=== PATIENT | female | born 1980 | race Caucasian/White ===

== ENCOUNTER 2020-01-05 08:12 | Day surgery (SDC) | payer BC ==
[~2020-01-05 08:12] MED LIST: Lactated Ringers 1,000 ML IV SCH; Lidocaine 1%/Sod Bicarbonate in NS 8.4% 1 ML Syringe IDERM PRN; Sodium Chloride 0.9% 10 ML Syringe FLUSH PRN
[2020-01-05] MEDS ORDERED: Midazolam 1 MG/ML 2 ML SDV ONE (09:19)
[2020-01-05] MEDS ORDERED: Lactated Ringers 1,000 ML ONE (09:19)
[2020-01-05] MEDS ORDERED: Ondansetron 4 MG/2 ML SDV ONE (09:19)
[2020-01-05] MEDS ORDERED: Propofol 200 MG/20 ML SDV ONE (09:19)
[2020-01-05] MEDS ORDERED: Rocuronium 50 MG/5 ML Vial ONE (09:19)
[2020-01-05] MEDS ORDERED: fentaNYL 250 MCG/5 ML SDV ONE (09:19)
[2020-01-05] MEDS ORDERED: Lidocaine 1% 4 ML ONE (09:19)
[2020-01-05] MEDS ORDERED: Ketorolac 30 MG/ML SDV ONE (09:21)
[2020-01-05] MEDS ORDERED: Dexamethasone 4 MG/ML 5 ML MDV ONE (09:21)
[2020-01-05] MEDS: Bupivacaine 0.5% 30 ML SDV ONE ×2 (10:08→10:27)
[2020-01-05] MEDS ORDERED: Ondansetron 4 MG/2 ML SDV IVPUSH PRN (10:22)
[2020-01-05] MEDS ORDERED: HYDROmorphone 0.5 MG/0.5 ML Syringe IVPUSH PRN (10:22)
--- NOTE | 2020-01-05 10:26 | PCM.PREANE ---
Preanesthetic Assessment - Anesthesia/Transfusion/Family Hx Anesthesia History: Prior Anesthesia Without Reaction Family History of Anesthesia Reaction: No - Review of Systems General: No Symptoms Pulmonary: No Symptoms Cardiovascular: No Symptoms (Hypertension controlled with medication. ) Gastrointestinal: Abdominal Pain Neurological: Headache, Pre-Existing Deficit (Back pain goes into both legs sharp, left leg more than the right leg. Intermittent depending on activity level. ) Other: Reports: None - Physical Assessment NPO Status Date: 01/04/20 NPO Status Time: 22:00 Vital Signs: Last Vital Signs Temp 37.2 C 01/05/20 08:25 Pulse 97 01/05/20 08:25 Resp 16 01/05/20 08:25 BP 119/88 01/05/20 08:25 Pulse Ox 100 01/05/20 08:25 Height: 1.65 m Weight: 81.193 kg ASA Class: 2 Mental Status: Alert & Oriented x3 Airway Class: Mallampati = 2 Dentition: Reports: [place](s) (Front Upper with chip at corner. ) Thyro-Mental Finger Breadths: 2 Mouth Opening Finger Breadths: 3 ROM/Head Extension: Full Lungs: Clear to Auscultation, Normal Respiratory Effort Cardiovascular: Regular Rate, Regular Rhythm - Lab Values: Laboratory Last Values Urine Color Yellow (Yellow) 01/05/20 08:23 Urine Appearance Slt cloudy (Clear) H 01/05/20 08:23 Urine pH 6.0 (5.0-8.0) 01/05/20 08:23 Ur Specific [place] > or = 1.030 (1.005-1.030) 01/05/20 08:23 Urine Protein Negative (Negative) 01/05/20 08:23 Urine Glucose (UA) Negative (Negative) 01/05/20 08:23 Urine Ketones Negative (Negative) 01/05/20 08:23 Urine Occult Blood Negative (Negative) 01/05/20 08:23 Urine Nitrite Negative (Negative) 01/05/20 08:23 Urine Bilirubin Negative (Negative) 01/05/20 08:23 Urine Urobilinogen 0.2 (0.2-1.0) 01/05/20 08:23 Ur Leukocyte Esterase Negative (Negative) 01/05/20 08:23 Urine RBC 0-5 /hpf (0-5) 01/05/20 08:23 Urine WBC 0-5 /hpf (0-5) 01/05/20 08:23 Ur Epithelial Cells 10-20 /hpf (0-5) H 01/05/20 08:23 Urine Bacteria Not seen /hpf (FEW) 01/05/20 08:23 Urine Mucus Not seen /hpf (FEW) 01/05/20 08:23 Urine HCG, Qual Negative (NEGATIVE) 01/05/20 08:23 - Allergies Allergies/Adverse Reactions: Allergies Allergy/AdvReac Type Severity Reaction Status Date / Time cat dander Allergy Cannot Verified 01/05/20 09:42 Remember - Acknowledgements Anesthesia Type Planned: General Anesthesia Pt an Appropriate Candidate for the Planned Anesthesia: Yes Alternatives and Risks of Anesthesia Discussed w Pt/Guardian: Yes Pt/Guardian Understands and Agrees with Anesthesia Plan: Yes PreAnesthesia Questionnaire HEENT History: Reports: Allergic Rhinitis Cardiovascular History: Reports: Hypertension Respiratory History: Reports: None Gastrointestinal History: Reports: Chronic Constipation, GERD Genitourinary History: Reports: Other (See Below) Other Genitourinary History: suprapubic pain, frequency ETCHER MACHINE History: Reports: Other (See Below) Other OB/BYN History: bacterial vaginitis, infertility, menorrhagia, pelvic pain , vaginal itching, hysteroscopy, laparoscopy with endometriosis implants Musculoskeletal History: Reports: Back Pain, Chronic Neurological History: Reports: Headaches, Chronic, Migraines Psychiatric History: Reports: None Endocrine/Metabolic History: Reports: None Hematologic History: Reports: None Immunologic History: Reports: None Oncologic (Cancer) History: Reports: None Dermatologic History: Reports: Other (See Below) Other Dermatologic History: acne - Past Surgical History Head Surgeries/Procedures: Reports: None HEENT Surgical History: Reports: None Cardiovascular Surgical History: Reports: None Respiratory Surgical History: Reports: None Female Surgical History: Reports: None Male Surgical History: Reports: None Endocrine Surgical History: Reports: None Neurological Surgical History: Reports: None Musculoskeletal Surgical History: Reports: None Oncologic Surgical History: Reports: None - SUBSTANCE USE Smoking Status *Q: Never Smoker Recreational Drug Use History: No - HOME MEDS Home Medications: Home Meds Cyclobenzaprine [Flexeril] 10 mg PO TID PRN 01/04/20 [History] Dicyclomine [Bentyl] 10 mg PO QID 01/04/20 [History] Labetalol HCl [Labetalol] 100 mg PO BID 01/04/20 [History] Lactulose [Chronulac] 15 ml PO DAILY 01/04/20 [History] Norethindrone [Aygestin] 5 mg PO DAILY 01/04/20 [History] Omeprazole 20 mg PO BID 01/04/20 [History] Topiramate 150 mg PO DAILY 01/04/20 [History] ondansetron HCL [Ondansetron HCl] 4 mg PO Q6H PRN 01/04/20 [History] - CURRENT (IN HOUSE) MEDS Current Meds: Current Medications Lactated Ringer's (Ringers, Lactated) 1,000 mls @ 125 mls/hr IV ASDIRECTED ROSARIO Stop: 01/05/20 23:00 Last Admin: 01/05/20 08:55 Dose: 125 mls/hr Lidocaine/Sodium Bicarbonate (Buffered Lidocaine 1% In Ns 8.4%) 0.25 ml IDERM ONETIME PRN PRN Reason: Prior to IV Start Stop: 01/05/20 18:00 Last Admin: 01/05/20 08:55 Dose: 0.25 ml Sodium Chloride (Saline Flush) 10 ml FLUSH ASDIRECTED PRN PRN Reason: Keep Vein Open Stop: 01/05/20 18:00 Discontinued Medications Bupivacaine HCl (Marcaine 0.5%) Confirm Administered Dose 30 ml .ROUTE .STK-MED ONE Stop: 01/05/20 09:16 Dexamethasone (Dexamethasone) Confirm Administered Dose 20 mg .ROUTE .STK-MED ONE Stop: 01/05/20 09:22 Fentanyl (Sublimaze) Confirm Administered Dose 250 mcg .ROUTE .STK-MED ONE Stop: 01/05/20 09:20 Lidocaine HCl (Xylocaine-Mpf 1%) Confirm Administered Dose 4 mls @ as directed .ROUTE .STK-MED ONE Stop: 01/05/20 09:20 Lactated Ringer's (Ringers, Lactated) Confirm Administered Dose 1,000 mls @ as directed .ROUTE .STK-MED ONE Stop: 01/05/20 09:20 Ketorolac Tromethamine (Toradol) Confirm Administered Dose 30 mg .ROUTE .STK- MED ONE Stop: 01/05/20 09:22 Midazolam HCl (Versed 1 Mg/Ml) Confirm Administered Dose 2 mg .ROUTE .STK-MED ONE Stop: 01/05/20 09:20 Ondansetron HCl (Zofran) Confirm Administered Dose 4 mg .ROUTE .STK-MED ONE Stop: 01/05/20 09:20 Propofol (Diprivan 20 Ml) Confirm Administered Dose 400 mg .ROUTE .STK-MED ONE Stop: 01/05/20 09:20 Rocuronium Oden (Zemuron) Confirm Administered Dose 50 mg .ROUTE .STK-MED ONE Stop: 01/05/20 09:20
[2020-01-05] MEDS ORDERED: Neostigmine Methylsulfate 1 MG/ML 5 ML Syringe ONE ×2 (10:38→10:39)
[2020-01-05] MEDS: fentaNYL 100 MCG/2 ML SDV IVPUSH PRN ×2 (11:10→11:32)
--- NOTE | 2020-01-05 11:11 | PCM.POSTAN ---
POST ANESTHESIA ASSESSMENT - MENTAL STATUS Mental Status: Alert, Oriented - VITAL SIGNS Vital Signs: Last Vital Signs Temp 37.2 C 01/05/20 08:25 Pulse 97 01/05/20 08:25 Resp 16 01/05/20 08:25 BP 119/88 01/05/20 08:25 Pulse Ox 100 01/05/20 08:25 1104 118/72 83 20 98.6F 97% - RESPIRATORY Respiratory Status: Respiratory Rate WNL, Airway Patent, O2 Saturation Stable, Supplemental Oxygen - CARDIOVASCULAR CV Status: Pulse Rate WNL, Blood Pressure Stable - GASTROINTESTINAL GI Status: No Symptoms - PAIN Pain Score: 0 - POST OP HYDRATION Hydration Status: Adequate & Stable
[2020-01-05] MEDS ORDERED: Haloperidol Lactate 5 MG/ML SDV IVPUSH ONE (11:25)
--- NOTE | 2020-01-05 12:33 | PCM.OPNOTE ---
- General Post-Op/Procedure Note Date of Surgery/Procedure: 01/05/20 Operative Procedure(s): Laparoscopic bilateral salpingectomy with minimal amount of lysis of adhesions Findings: Uterus with multiple fibroids located throughout the entirety of the uterus on the anterior, fundal and posterior [place] of the uterus. Edematous bilateral fallopian tubes. Left ovary with 2 endometriomas present measuring approximately 3 to 4 cm each. Right ovary grossly normal in appearance except for 1 inferior endometrioma measuring approximately 2 cm. Grossly normal- appearing appendix and visualized portions of the intestines. Visualized portion of the gallbladder was normal. Visualized portions of the liver were normal. Pre Op Diagnosis: Pelvic pain and hydrosalpinx noted on ultrasound, history of endometriosis Post-Op Diagnosis: Same Anesthesia Technique: General ET Tube Primary Surgeon: Saran Nguyen Anesthesia Provider: Va Snell Medical Recruiter: Romario Emery Medical Recruiter: Rai Muñiz ([place] student) Reason Medical Recruiter Was Necessary: Patient safety and reduction of morbidity and mortality Role of Medical Recruiter: Use of laparoscopic instruments to complete the procedure. Pathology: Bilateral fallopian tubes in separate containers Fluid Replacement, Intraop: 1,600 Output, Urine Amount: 0 (Voided prior to procedure) EBL in mLs: 15 Complications: None Condition: Good Free Text/Narrative:: Intake & Output 01/04/20 01/05/20 01/05/20 22:59 06:59 14:59 Intake Total 150 Balance 150 Length of procedure: 42 minutes Procedure in detail: The patient was seen in the preoperative holding area and risks, benefits, indications, and alternatives of the procedure were reviewed with the patient and she desired to proceed with a diagnostic laparoscopy, with salpingectomy of affected side, possible unilateral or bilateral and possible lysis of adhesions. Consents were reviewed. The patient was taken back to the OR and given general anesthesia with an endotracheal tube which was placed without difficulty. She was placed in dorsal supine position. She was prepped and draped in normal sterile fashion. Attention was then turned to her umbilicus and it was injected with 0.5% Marcaine and a 5 mm stab incision was made with a scalpel and a Veress needle was then inserted through the incision. The gas was turned on, with an opening pressure of 8 mmHg. Pneumoperitoneum was continued until 15 mmHg pressure. A 5 mm trocar was then inserted under direct visualization through the incision without difficulty. A global view of the abdomen was taken and noted to be overall free of adhesions. Attention was then turned to the right lower quadrant of the abdomen where a previous laparoscopic port scar was noted and this was used for this procedure. The skin was injected with local anesthetic and a skin incision was made using a scalpel. A 5 mm trocar was then inserted under direct visualization with laparoscope. Attention was then turned to the left lower quadrant of the abdomen where a previous laparoscopic port scar was noted and this was used for this procedure. The skin was injected with local anesthetic and a skin incision was made using a scalpel. A 5 mm trocar was then inserted under direct visualization with the laparoscope. A global view of the abdomen was then taken and noted to be overall normal in appearance. The intestines, visualized portions of the liver and gallbladder and upper abdomen were overall normal appearance. The appendix was visualized and noted to be normal in appearance. The uterus was then inspected and felt to be overall normal in appearance except for multiple fibroids on all of the surfaces of the uterus. There were approximately 6 fibroids noted with 2 on the anterior surface of the uterus. One was at the uterine fundus near the right round ligament insertion. And 3 were noted on the posterior side of the uterus with 2 on the right side and 1 on the left. The largest fibroid measured approximately 5 cm and on the anterior surface of the uterus near the midline. The remainder of the fibroids ranged in size from 1 to 3 cm approximately. The fallopian tubes and ovaries were inspected and noted to have multiple endometriomas present in the left ovary and one endometrioma in the right ovary. The fallopian tube on the left side was edematous and scarred down to the ovary. A laparoscopic Enseal vessel sealing device was then used to dissect the fallopian tube away from the ovary and the underlying mesosalpinx to the level of the insertion of the uterus and then was cut across the fallopian tube attachment. This was removed from the abdomen and sent to pathology. Evaluation of the right tube and ovary showed grossly normal- appearing ovary with 1 smaller endometrioma present and an edematous midportion of the fallopian tube. Decision was made to remove this fallopian tube as well due to the suspected hydrosalpinx on the right side as well. The laparoscopic Enseal vessel sealing device was used to dissect the fallopian tube from the underlying mesosalpinx to the level of the insertion of the uterus and then transected using the Enseal device. The fallopian tube was removed from the abdomen and sent for pathology as a separate specimen. Inspection of the posterior cul-de-sac did not show any abnormalities or evidence of endometriosis lesions. The abdomen was then further explored and no felt to be overall normal and the case was completed at this time. The gas was then evacuated from the peritoneum and trocars removed. These were closed using 4-0 Monocryl suture and Dermabond. The case was completed at this time and all instruments were removed. The patient was awoken from general anesthesia and taken to the PACU for recovery in stable condition. She will be discharged to home once she is able to meet all postoperative milestones including tolerating small amount of oral intake and liquids, ambulate without difficulty, her pain controlled with oral medications and able to void without difficulty. She will follow-up in the clinic in 2 weeks or earlier as needed. Sponge, lap, needle, and instrument counts were correct x 2. Review of images IMG 001: Uterine fundus with several fibroids noted with one near the right round ligament insertion on the uterus and the other in the anterior surface of the uterus in the midline. IMG 002: Anterior fundal uterine fibroid in the foreground with a larger mid uterine fibroid noted in the midline as well IMG 003: Grossly normal-appearing appendix IMG 004: Right lobe of the liver grossly normal in appearance with normal visualized portion of the gallbladder IMG 005: Left lobe of the liver grossly normal in appearance IMG 006: Left fallopian tube and ovary with multiple endometriomas visualized. Edematous portion of the fallopian tube noted at the 6 o'clock position in this picture. IMG 007: Left mesosalpinx with hemostasis noted after removal of the fallopian tube IMG 008: Right mesosalpinx with hemostasis noted after removal of the fallopian tube IMG 009: Posterior cul-de-sac with visualized portion of the ovary and an endometrioma present in the inferior portion of the right ovary. Multiple fibroids noted on the posterior surface of the uterus IMG 010: Left ovary with endometrioma present IMG 011: Right ovary with additional view of the endometrioma in the inferior portion
[2020-01-05] MEDS ORDERED: Acetaminophen/oxyCODONE 325-5 MG Tab PO PRN (12:40)
--- NOTE | 2020-01-05 12:55 | PCM48HPAN ---
Post Anesthesia Note - EVALUATION WITHIN 48HRS OF ANESTHETIC Vital Signs in Normal Range: Yes Patient Participated in Evaluation: Yes Respiratory Function Stable: Yes Airway Patent: Yes Cardiovascular Function Stable: Yes Hydration Status Stable: Yes Pain Control Satisfactory: Yes Nausea and Vomiting Control Satisfactory: Yes Mental Status Recovered: Yes Vital Signs: Last Vital Signs Temp 36.7 C 01/05/20 11:50 Pulse 73 01/05/20 12:30 Resp 14 01/05/20 12:30 BP 103/66 01/05/20 12:30 Pulse Ox 95 01/05/20 12:30
== END 2020-01-05 13:35 | disposition home or self-care (01) ==
LOC: JD.SDS 08:12
PROVIDERS: ATTEND Obstetrics & Gynecology
DX: N70.11 Chronic salpingitis (principal); D25.9 Leiomyoma of uterus, unspecified; N80.1 Endometriosis of ovary; N97.9 Female infertility, unspecified; I10 Essential (primary) hypertension; E78.00 Pure hypercholesterolemia, unspecified; K21.9 Gastro-esophageal reflux disease without esophagitis; Z91.09 Other allergy status, other than to drugs and biological substances; Z79.899 Other long term (current) drug therapy
CPT/HCPCS: 58661; 81001; 81025; A9270; J1100; J1630; J1885; J2001; J2250; J2405; J2704; J2710; J3010; J3490; J7120; 00840

== ENCOUNTER 2020-02-09 09:21 | Emergency (ER) | payer BC ==
--- NOTE | 2020-02-09 10:00 | EDM.PDOC ---
<Aftab Breen - Last Filed: 02/09/20 10:17> ED HPI GENERAL MEDICAL PROBLEM - General Chief Complaint: Headache Stated Complaint: HEADACHE Time Seen by Provider: 02/09/20 09:55 Source of Information: Reports: Patient, Significant Other () History Limitations: Reports: No Limitations - History of Present Illness INITIAL COMMENTS - FREE TEXT/NARRATIVE: Vanessa is a 39 y/o female presenting with her for headache and fever. She reports that the night of 02/06/2020 she started to develop a mild headache which she thought was a migraine since she gets them occasionally. The headache has since then worsened progressively. She reports that yesterday (02/08/2020) she tried taking a 1/2 of her prescribed Percocet and one of her Flexeril which has helped for her migraines in the past, but this time it didn't touch it. In addition last night she started developing a fever and became very nauseous. This morning at 5:30 a.m. she had her first vomiting episode and has felt awful since then, vomiting a total of 2 times before presentation to the ER today. Beyond the fever, headache, and vomiting she also has chills, a scratchy throat , an earache of her right ear, and a mild cough that seemed to start with her vomiting. She denies sinus pressure, nasal pain or discharge, chest pain or palpitations, dyspnea, any production with cough, tingling/numbness of her extremities, abdominal pain or tenderness, and denies any changes to urinary or bowel habits. She has a PMH of migraine headaches, and endometriosis. Her recently had symptoms related to a sinus infection earlier this week, but he went into [facility] Wednesday (02/05/2020) and they informed he most likely had a viral sinus infection as he tested negative for flu A and B. - Related Data Allergies Allergy/AdvReac Type Severity Reaction Status Date / Time cat dander Allergy Cannot Verified 02/09/20 09:37 Remember Home Meds: Home Meds Cyclobenzaprine [Flexeril] 10 mg PO TID PRN 01/04/20 [History] Dicyclomine [Bentyl] 10 mg PO QID 01/04/20 [History] Labetalol HCl [Labetalol] 100 mg PO BID 02/06/20 [History] Lactulose [Chronulac] 15 ml PO DAILY 01/04/20 [History] Ibuprofen 600 mg PO Q6H PRN #60 tablet 01/05/20 [Rx] oxyCODONE HCl/Acetaminophen [Percocet 5-325 mg Tablet] 1 - 2 each PO Q6H PRN # 20 tablet 01/05/20 [Rx] Ondansetron [Zofran] 4 mg BUCCAL Q6H PRN #6 tab 02/09/20 [Rx] levoFLOXacin [Levaquin] 500 mg PO DAILY #10 tab 02/09/20 [Rx] oxyCODONE HCl/Acetaminophen [Percocet 5-325 mg Tablet] 1 - 2 each PO Q4H PRN # 12 tablet 02/09/20 [Rx] Past Medical History HEENT History: Reports: Head (Migraine Headaches) 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 Denies: Night Sweats, Weight Loss, Weight Gain HEENT: Reports: Ear Pain (right earache), Eye Pain (pain with left lateral gaze) , Throat Pain (mild pharyngeal scratchy sensation ), Vision Change (photophobia) Respiratory: Reports: Cough (with vomiting). Denies: Shortness of Breath, Wheezing, Pleuritic Chest Pain, Sputum, Hemoptysis Cardiovascular: Reports: No Symptoms. Denies: Chest Pain, Blood Pressure Problem, Dyspnea on Exertion, Lightheadedness, Palpitations, Syncope GI/Abdominal: Reports: Decreased Appetite, Nausea, Vomiting. Denies: Abdominal Pain, Anorexia, Bloody Stool, Constipation, Diarrhea, Hematochezia : Reports: No Symptoms Musculoskeletal: Reports: No Symptoms Skin: Reports: Diaphoresis. Denies: Cyanosis, Jaundice, Bruising, Pruritis, Rash, Change in Color, Change in Hair/Nails Neurological: Reports: Dizziness, Headache, Weakness. Denies: Confusion, Numbness, Paresthesia, Seizure, Syncope, Tingling, Tremors Psychiatric: Reports: No Symptoms - Physical Exam Exam: See Below Exam Limited By: No Limitations General Appearance: Alert, WD/WN, No Apparent Distress Eye Exam: Bilateral Eye: EOMI, Normal Inspection, PERRL, Vision Changes (Pain with left lateral gaze) Ears: Hearing Grossly Normal, Other (Right ear showing slight fluid in inferior portion of the TM on exam, mild erythema noted, all sturctures visualized). No : Normal External Exam, Normal Canal, Normal TMs Nose: Normal Inspection, Normal Mucosa. No: Nasal Tenderness, Clear Rhinorrhea Throat/Mouth: Normal Inspection, Normal Lips, Normal Teeth, Normal Gums, Normal Oropharynx, Normal Voice, No Airway Compromise Head Exam: Atraumatic, Normocephalic, Other (migraine reported symptoms) Neck: Normal Inspection, Full Range of Motion. No: Lymphadenopathy (L), Lymphadenopathy (R) Respiratory/Chest: No Respiratory Distress, Lungs Clear, Normal Breath Sounds, No Accessory Muscle Use, Chest Non-Tender. No: Decreased Breath Sounds, Crackles, Rales, Rhonchi, Wheezing Cardiovascular: Regular Rate, Rhythm, No Edema, No Gallop, No JVD, No Murmur, No Rub, JVD, Other (slightly bounding pulses most likely from reaction to fever and dehydration ) GI/Abdominal: Normal Bowel Sounds, Soft, Non-Tender, No Distention, No Mass. No : Distended, Guarding, Rigid, Rebound Neuro Exam (Abbreviated): Alert, Oriented, Normal Cognition, Normal Reflexes, No Motor/Sensory Deficits. No: Disoriented, Sensory/Motor Deficit Back Exam: Normal Inspection Extremities: Normal Inspection, Non-Tender, No Pedal Edema, Normal Capillary Refill. No: Pedal Edema, Increased Warmth Psychiatric: Normal Affect, Normal Mood Skin Exam: Dry, Intact, Normal Color, No Rash, Increased Warmth (fever response) . No: Warm Course - Vital Signs Last Recorded V/S: Last Vital Signs Temp 37.2 C 02/09/20 16:25 Pulse 106 H 02/09/20 16:25 Resp 18 02/09/20 16:25 BP 111/72 02/09/20 16:25 Pulse Ox 97 02/09/20 16:25 Orthostatic Blood Pressure [ 129/95 Standing] Orthostatic Blood Pressure [ 134/88 Sitting] Orthostatic Blood Pressure [ 135/89 Supine] - Orders/Labs/Meds Labs: Laboratory Tests 02/09/20 02/09/20 02/09/20 Range/Units 11:05 11:05 11:06 WBC 17.49 H (3.98-10.04) K/mm3 RBC 5.44 H (3.98-5.22) M/mm3 Hgb 14.2 D (11.2-15.7) gm/dl Hct 44.5 (34.1-44.9) % MCV 81.8 (79.4-94.8) fl MCH 26.1 (25.6-32.2) pg MCHC 31.9 L (32.2-35.5) g/dl RDW Std Deviation 44.9 (36.4-46.3) fL Plt Count 344 D (182-369) K/mm3 MPV 9.3 L (9.4-12.3) fl Neutrophils % (Manual) 91 H (40-60) % Band Neutrophils % 0 (0-10) % Lymphocytes % (Manual) 5 L (20-40) % Atypical Lymphs % 0 % Monocytes % (Manual) 4 (2-10) % Eosinophils % (Manual) 0 L (0.7-5.8) % Basophils % (Manual) 0 L (0.1-1.2) Platelet Estimate Adequate Anisocytosis 1+ slight RBC Morph Comment Documentation Clerk Sodium 138 (136-145) mEq/L Potassium 4.9 (3.5-5.1) mEq/L Chloride 102 (98-107) mEq/L Carbon Dioxide 22 (21-32) mEq/L Anion Gap 18.9 H (5-15) BUN 14 (7-18) mg/dL Creatinine 0.9 (0.55-1.02) mg/dL Est Cr Clr Drug Dosing 77.01 mL/min Estimated GFR (MDRD) > 60 (>60) mL/min BUN/Creatinine Ratio 15.6 (14-18) Glucose 103 (74-106) mg/dL Lactic Acid (0.4-2.0) mmol/L Calcium 9.5 (8.5-10.1) mg/dL Total Bilirubin 0.6 (0.2-1.0) mg/dL AST 18 (15-37) U/L ALT 30 (14-59) U/L Alkaline Phosphatase 99 (46-116) U/L C-Reactive Protein 2.4 H* (<1.0) mg/dL Total Protein 8.3 H (6.4-8.2) g/dl Albumin 4.4 (3.4-5.0) g/dl Globulin 3.9 gm/dL Albumin/Globulin Ratio 1.1 (1-2) Urine Color Yellow (Yellow) Urine Appearance Clear (Clear) Urine pH 7.0 (5.0-8.0) Ur Specific [place] 1.025 (1.005-1.030) Urine Protein Negative (Negative) Urine Glucose (UA) 2+ H (Negative) Urine Ketones Trace H (Negative) Urine Occult Blood Negative (Negative) Urine Nitrite Negative (Negative) Urine Bilirubin Negative (Negative) Urine Urobilinogen 0.2 (0.2-1.0) Ur Leukocyte Esterase Negative (Negative) Urine RBC 0-5 (0-5) /hpf Urine WBC 0-5 (0-5) /hpf Ur Squamous Epith Cells 0-5 (0-5) /hpf Urine Bacteria Few (FEW) /hpf Urine Mucus Few (FEW) /hpf 02/09/20 02/09/20 Range/Units 12:36 14:33 WBC (3.98-10.04) K/mm3 RBC (3.98-5.22) M/mm3 Hgb (11.2-15.7) gm/dl Hct (34.1-44.9) % MCV (79.4-94.8) fl MCH (25.6-32.2) pg MCHC (32.2-35.5) g/dl RDW Std Deviation (36.4-46.3) fL Plt Count (182-369) K/mm3 MPV (9.4-12.3) fl Neutrophils % (Manual) (40-60) % Band Neutrophils % (0-10) % Lymphocytes % (Manual) (20-40) % Atypical Lymphs % % Monocytes % (Manual) (2-10) % Eosinophils % (Manual) (0.7-5.8) % Basophils % (Manual) (0.1-1.2) Platelet Estimate Anisocytosis RBC Morph Comment Sodium (136-145) mEq/L Potassium (3.5-5.1) mEq/L Chloride (98-107) mEq/L Carbon Dioxide (21-32) mEq/L Anion Gap (5-15) BUN (7-18) mg/dL Creatinine (0.55-1.02) mg/dL Est Cr Clr Drug Dosing mL/min Estimated GFR (MDRD) (>60) mL/min BUN/Creatinine Ratio (14-18) Glucose (74-106) mg/dL Lactic Acid 2.3 H* 1.8 (0.4-2.0) mmol/L Calcium (8.5-10.1) mg/dL Total Bilirubin (0.2-1.0) mg/dL AST (15-37) U/L ALT (14-59) U/L Alkaline Phosphatase (46-116) U/L C-Reactive Protein (<1.0) mg/dL Total Protein (6.4-8.2) g/dl Albumin (3.4-5.0) g/dl Globulin gm/dL Albumin/Globulin Ratio (1-2) Urine Color (Yellow) Urine Appearance (Clear) Urine pH (5.0-8.0) Ur Specific [place] (1.005-1.030) Urine Protein (Negative) Urine Glucose (UA) (Negative) Urine Ketones (Negative) Urine Occult Blood (Negative) Urine Nitrite (Negative) Urine Bilirubin (Negative) Urine Urobilinogen (0.2-1.0) Ur Leukocyte Esterase (Negative) Urine RBC (0-5) /hpf Urine WBC (0-5) /hpf Ur Squamous Epith Cells (0-5) /hpf Urine Bacteria (FEW) /hpf Urine Mucus (FEW) /hpf Meds: Medications Discontinued Medications Generic Name Dose Route Start Last Admin Trade Name Freq PRN Reason Stop Dose Admin Acetaminophen 975 mg 02/09/20 10:11 02/09/20 10:32 Tylenol PO 02/09/20 10:12 975 mg NOW ONE Administration Diphenhydramine HCl 12.5 mg 02/09/20 10:17 02/09/20 11:06 Benadryl IVPUSH 02/09/20 10:18 12.5 mg ONETIME ONE Administration Hydromorphone HCl 0.5 mg 02/09/20 10:15 02/09/20 11:05 Dilaudid IVPUSH 02/09/20 10:16 0.5 mg ONETIME ONE Administration Hydromorphone HCl 0.5 mg 02/09/20 11:31 02/09/20 11:50 Dilaudid IVPUSH 02/09/20 11:32 0.5 mg ONETIME ONE Administration Hydromorphone HCl 0.5 mg 02/09/20 15:03 02/09/20 15:31 Dilaudid IVPUSH 02/09/20 15:04 0.5 mg ONETIME ONE Administration Dextrose/Sodium Chloride 1,000 mls @ 999 mls/hr 02/09/20 10:15 02/09/20 10:33 Dextrose 5%-Normal Saline IV 999 mls/hr ASDIRECTED ROSARIO Administration Dextrose/Sodium Chloride 1,000 mls @ 999 mls/hr 02/09/20 12:45 02/09/20 12:55 Dextrose 5%-Normal Saline IV 999 mls/hr ASDIRECTED ROSARIO Administration Ceftriaxone Sodium 2 gm/ 100 mls @ 200 mls/hr 02/09/20 13:45 02/09/20 13:44 Sodium Chloride IV 200 mls/hr Q24H ROSARIO Administration Lactated Ringer's 1,000 mls @ 150 mls/hr 02/09/20 14:30 02/09/20 14:23 Ringers, Lactated IV 150 mls/hr ASDIRECTED ROSARIO Administration Lactated Ringer's Confirm 02/09/20 14:22 02/09/20 14:24 Ringers, Lactated Administered 02/09/20 14:23 Not Given Dose 1,000 mls @ as directed .ROUTE .STK-MED ONE Iopamidol 100 ml 02/09/20 15:07 02/09/20 15:15 Isovue-300 (61%) IVPUSH 02/09/20 15:08 100 ml ONETIME ONE Administration Ketorolac Tromethamine 30 mg 02/09/20 10:15 02/09/20 11:04 Toradol IVPUSH 02/09/20 10:16 30 mg ONETIME ONE Administration Metoclopramide HCl 7.5 mg 02/09/20 10:11 02/09/20 11:04 Reglan IVPUSH 02/09/20 10:12 7.5 mg ONETIME ONE Administration Sodium Chloride 10 ml 02/09/20 10:11 02/09/20 11:06 Saline Flush FLUSH 10 ml ASDIRECTED PRN Administration Keep Vein Open Sodium Chloride 10 ml 02/09/20 15:07 02/09/20 15:15 Saline Flush FLUSH 10 ml ONETIME PRN Administration Keep Vein Open Departure - Departure Disposition: Home, Self-Care 01 Clinical Impression: Acute febrile illness, Fever of unknown origin Migraine headache Qualifiers: Migraine type: without aura Status migrainosus presence: without status migrainosus Intractability: not intractable Qualified Code(s): G43.009 - Migraine without aura, not intractable, without status migrainosus - Discharge Information Prescriptions: levoFLOXacin [Levaquin] 500 mg PO DAILY #10 tab Ondansetron [Zofran] 4 mg BUCCAL Q6H PRN #6 tab PRN Reason: nausea or vomiting oxyCODONE HCl/Acetaminophen [Percocet 5-325 mg Tablet] 1 - 2 each PO Q4H PRN # 12 tablet PRN Reason: pain relief. Instructions: Fever, Adult, Dehydration, Adult, [id number], Recurrent Migraine Headache, [id number] Referrals: Esther Barnes MD [Primary Care Provider] - Forms: ED Department Discharge Additional Instructions: Evaluation in the emergency room today in regards to development of a high fever with associated bad headache labeled as migraine. Source of the fever remains unclear. The lab tests reveal that it is most likely a bacterial origin but no bacterial source could be identified on very thorough examination including CT of the abdomen and pelvis normal chest x-ray normal urinalysis etc. You did recieve a dose of antibiotic intravenously while in the ED Rocephin 2 g. He received 2-1/2 L of IV fluids while in the ED due to dehydration. Received doses of Dilaudid and Toradol and Reglan for migraine headache relief. Remain at home is to be plenty of fluids such as Gatorade or Powerade to maintain hydration. Diet as tolerated. Suggest Motrin 600 mg every 6 hours as needed for relief of fever and/or headache. May use Zofran 4 mg under the tongue every 4-6 hours necessary for nausea relief. Percocet tabs 5/325 mg 1 or 2 every 4-6 hours as necessary for headache and/or body ache not relieved by Motrin alone. Antibiotic is to be Levaquin 500 mg once daily for the next 10 days with the first tablet to be taken tonight. Suggest follow-up if you are still running a fever in 36 hours time or sooner if any other symptoms develop. Otherwise follow-up with your primary care physician in 5 to 7 days is indicated to make sure you are on the mend. Sepsis Event Note - Focused Exam Date Exam was Performed: 02/09/20 Time Exam was Performed: 10:17 <Mynor Sotelo Vanessa - Last Filed: 02/14/20 14:34> ED HPI GENERAL MEDICAL PROBLEM - History of Present Illness Onset: Gradual Onset Date: 02/06/20 Onset Time: 21:00 Duration: Hour(s):, Getting Worse Location: Reports: Chest Quality: Reports: Ache, Other Severity: Moderate (Paroxysmal cough with headache) Improves with: Reports: None Worsens with: Reports: Other Context: Denies: Activity, Exercise, Lifting, Sick Contact, Trauma, Other Associated Symptoms: Reports: Chest Pain, Cough, cough w sputum, Fever/Chills, Headaches, Loss of Appetite, Malaise, Shortness of Breath. 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 Headache Pain Score (Numeric/FACES): 10 Past Medical History HEENT History: Reports: Allergic Rhinitis Cardiovascular History: Reports: Hypertension Respiratory History: Reports: None Gastrointestinal History: Reports: Chronic Constipation, GERD Genitourinary History: Reports: Other (See Below) Other Genitourinary History: suprapubic pain, frequency COURTESY DRIVER History: Reports: Other (See Below) Other COURTESY DRIVER History: bacterial vaginitis, infertility, menorrhagia, pelvic pain , vaginal itching, hysteroscopy, laparoscopy with endometriosis implants Musculoskeletal History: Reports: Back Pain, Chronic Neurological History: Reports: Headaches, Chronic, Migraines Psychiatric History: Reports: None Endocrine/Metabolic History: Reports: None Hematologic History: Reports: None Immunologic History: Reports: None Oncologic (Cancer) History: Reports: None Dermatologic History: Reports: Other (See Below) Other Dermatologic History: acne - Past Surgical History Head Surgeries/Procedures: Reports: None HEENT Surgical History: Reports: None Cardiovascular Surgical History: Reports: None Respiratory Surgical History: Reports: None Female Surgical History: Reports: None Endocrine Surgical History: Reports: None Neurological Surgical History: Reports: None Musculoskeletal Surgical History: Reports: None Oncologic Surgical History: Reports: None Social & Family History - Tobacco Use Smoking Status *Q: Never Smoker Second Hand Smoke Exposure: No - Caffeine Use Caffeine Use: Reports: Coffee, Soda - Recreational Drug Use Recreational Drug Use: No - Living Situation & Occupation Living situation: Reports: Occupation: Unemployed Course - Orders/Labs/Meds Labs: Laboratory Tests 02/09/20 02/09/20 02/09/20 Range/Units 11:05 11:05 11:06 WBC 17.49 H (3.98-10.04) K/mm3 RBC 5.44 H (3.98-5.22) M/mm3 Hgb 14.2 D (11.2-15.7) gm/dl Hct 44.5 (34.1-44.9) % MCV 81.8 (79.4-94.8) fl MCH 26.1 (25.6-32.2) pg MCHC 31.9 L (32.2-35.5) g/dl RDW Std Deviation 44.9 (36.4-46.3) fL Plt Count 344 D (182-369) K/mm3 MPV 9.3 L (9.4-12.3) fl Neutrophils % (Manual) 91 H (40-60) % Band Neutrophils % 0 (0-10) % Lymphocytes % (Manual) 5 L (20-40) % Atypical Lymphs % 0 % Monocytes % (Manual) 4 (2-10) % Eosinophils % (Manual) 0 L (0.7-5.8) % Basophils % (Manual) 0 L (0.1-1.2) Platelet Estimate Adequate Anisocytosis 1+ slight RBC Morph Comment Documentation Clerk Sodium 138 (136-145) mEq/L Potassium 4.9 (3.5-5.1) mEq/L Chloride 102 (98-107) mEq/L Carbon Dioxide 22 (21-32) mEq/L Anion Gap 18.9 H (5-15) BUN 14 (7-18) mg/dL Creatinine 0.9 (0.55-1.02) mg/dL Est Cr Clr Drug Dosing 77.01 mL/min Estimated GFR (MDRD) > 60 (>60) mL/min BUN/Creatinine Ratio 15.6 (14-18) Glucose 103 (74-106) mg/dL Lactic Acid (0.4-2.0) mmol/L Calcium 9.5 (8.5-10.1) mg/dL Total Bilirubin 0.6 (0.2-1.0) mg/dL AST 18 (15-37) U/L ALT 30 (14-59) U/L Alkaline Phosphatase 99 (46-116) U/L C-Reactive Protein 2.4 H* (<1.0) mg/dL Total Protein 8.3 H (6.4-8.2) g/dl Albumin 4.4 (3.4-5.0) g/dl Globulin 3.9 gm/dL Albumin/Globulin Ratio 1.1 (1-2) Urine Color Yellow (Yellow) Urine Appearance Clear (Clear) Urine pH 7.0 (5.0-8.0) Ur Specific [place] 1.025 (1.005-1.030) Urine Protein Negative (Negative) Urine Glucose (UA) 2+ H (Negative) Urine Ketones Trace H (Negative) Urine Occult Blood Negative (Negative) Urine Nitrite Negative (Negative) Urine Bilirubin Negative (Negative) Urine Urobilinogen 0.2 (0.2-1.0) Ur Leukocyte Esterase Negative (Negative) Urine RBC 0-5 (0-5) /hpf Urine WBC 0-5 (0-5) /hpf Ur Squamous Epith Cells 0-5 (0-5) /hpf Urine Bacteria Few (FEW) /hpf Urine Mucus Few (FEW) /hpf 02/09/20 02/09/20 Range/Units 12:36 14:33 WBC (3.98-10.04) K/mm3 RBC (3.98-5.22) M/mm3 Hgb (11.2-15.7) gm/dl Hct (34.1-44.9) % MCV (79.4-94.8) fl MCH (25.6-32.2) pg MCHC (32.2-35.5) g/dl RDW Std Deviation (36.4-46.3) fL Plt Count (182-369) K/mm3 MPV (9.4-12.3) fl Neutrophils % (Manual) (40-60) % Band Neutrophils % (0-10) % Lymphocytes % (Manual) (20-40) % Atypical Lymphs % % Monocytes % (Manual) (2-10) % Eosinophils % (Manual) (0.7-5.8) % Basophils % (Manual) (0.1-1.2) Platelet Estimate Anisocytosis RBC Morph Comment Sodium (136-145) mEq/L Potassium (3.5-5.1) mEq/L Chloride (98-107) mEq/L Carbon Dioxide (21-32) mEq/L Anion Gap (5-15) BUN (7-18) mg/dL Creatinine (0.55-1.02) mg/dL Est Cr Clr Drug Dosing mL/min Estimated GFR (MDRD) (>60) mL/min BUN/Creatinine Ratio (14-18) Glucose (74-106) mg/dL Lactic Acid 2.3 H* 1.8 (0.4-2.0) mmol/L Calcium (8.5-10.1) mg/dL Total Bilirubin (0.2-1.0) mg/dL AST (15-37) U/L ALT (14-59) U/L Alkaline Phosphatase (46-116) U/L C-Reactive Protein (<1.0) mg/dL Total Protein (6.4-8.2) g/dl Albumin (3.4-5.0) g/dl Globulin gm/dL Albumin/Globulin Ratio (1-2) Urine Color (Yellow) Urine Appearance (Clear) Urine pH (5.0-8.0) Ur Specific [place] (1.005-1.030) Urine Protein (Negative) Urine Glucose (UA) (Negative) Urine Ketones (Negative) Urine Occult Blood (Negative) Urine Nitrite (Negative) Urine Bilirubin (Negative) Urine Urobilinogen (0.2-1.0) Ur Leukocyte Esterase (Negative) Urine RBC (0-5) /hpf Urine WBC (0-5) /hpf Ur Squamous Epith Cells (0-5) /hpf Urine Bacteria (FEW) /hpf Urine Mucus (FEW) /hpf Meds: Medications Discontinued Medications Generic Name Dose Route Start Last Admin Trade Name Jeff PRN Reason Stop Dose Admin Acetaminophen 975 mg 02/09/20 10:11 02/09/20 10:32 Tylenol PO 02/09/20 10:12 975 mg NOW ONE Administration Diphenhydramine HCl 12.5 mg 02/09/20 10:17 02/09/20 11:06 Benadryl IVPUSH 02/09/20 10:18 12.5 mg ONETIME ONE Administration Hydromorphone HCl 0.5 mg 02/09/20 10:15 02/09/20 11:05 Dilaudid IVPUSH 02/09/20 10:16 0.5 mg ONETIME ONE Administration Hydromorphone HCl 0.5 mg 02/09/20 11:31 02/09/20 11:50 Dilaudid IVPUSH 02/09/20 11:32 0.5 mg ONETIME ONE Administration Hydromorphone HCl 0.5 mg 02/09/20 15:03 02/09/20 15:31 Dilaudid IVPUSH 02/09/20 15:04 0.5 mg ONETIME ONE Administration Dextrose/Sodium Chloride 1,000 mls @ 999 mls/hr 02/09/20 10:15 02/09/20 10:33 Dextrose 5%-Normal Saline IV 999 mls/hr ASDIRECTED ROSARIO Administration Dextrose/Sodium Chloride 1,000 mls @ 999 mls/hr 02/09/20 12:45 02/09/20 12:55 Dextrose 5%-Normal Saline IV 999 mls/hr ASDIRECTED ROSARIO Administration Ceftriaxone Sodium 2 gm/ 100 mls @ 200 mls/hr 02/09/20 13:45 02/09/20 13:44 Sodium Chloride IV 200 mls/hr Q24H ROSARIO Administration Lactated Ringer's 1,000 mls @ 150 mls/hr 02/09/20 14:30 02/09/20 14:23 Ringers, Lactated IV 150 mls/hr ASDIRECTED ROSARIO Administration Lactated Ringer's Confirm 02/09/20 14:22 02/09/20 14:24 Ringers, Lactated Administered 02/09/20 14:23 Not Given Dose 1,000 mls @ as directed .ROUTE .STK-MED ONE Iopamidol 100 ml 02/09/20 15:07 02/09/20 15:15 Isovue-300 (61%) IVPUSH 02/09/20 15:08 100 ml ONETIME ONE Administration Ketorolac Tromethamine 30 mg 02/09/20 10:15 02/09/20 11:04 Toradol IVPUSH 02/09/20 10:16 30 mg ONETIME ONE Administration Metoclopramide HCl 7.5 mg 02/09/20 10:11 02/09/20 11:04 Reglan IVPUSH 02/09/20 10:12 7.5 mg ONETIME ONE Administration Sodium Chloride 10 ml 02/09/20 10:11 02/09/20 11:06 Saline Flush FLUSH 10 ml ASDIRECTED PRN Administration Keep Vein Open Sodium Chloride 10 ml 02/09/20 15:07 02/09/20 15:15 Saline Flush FLUSH 10 ml ONETIME PRN Administration Keep Vein Open - Radiology Interpretation Free Text/Narrative:: 39-year-old female was seen in the ED myself and physician podiatric assistant Aftab Breen. Clinically the patient has a very high fever of 39.4 degrees with associated mild nonproductive cough terrible headache which seem to predate the fever and diffuse body aches suggestive of influenza infection. Currently she seems to have a migraine-like headache associate with mild nausea. I agree with treatment plan with rehydration with intravenous fluids and Toradol 30 mg IV with Dilaudid 0.5 mg IV and Benadryl 12.5 mg IV and then 7.5 mg IV for headache relief. She will also be given Tylenol 9 7 5 mg orally for fever relief 15 minutes after the Reglan has been infused. Influenza screen ordered. She will have routine labs including CBC with differential, CMP and CRP done as well. Urinalysis 1 becomes available - Re-Assessments/Exams Free Text/Narrative Re-Assessment/Exam: 02/09/20 11:30 Labs reveal a elevated white count at 17.49. Differential pending. hemo globin is 14.2 with hematocrit of 44.5. Platelet count is 344, 000. The elevated white count is strongly suggestive of an underlying bacterial infection. Patient will therefore have a full septic work-up. She does report she is prone to urinary tract infection and does have bilateral flank pain. She has not had any dysuria urgency or frequency in the last week. Headache is mildly improved with medication. Will repeat Dilaudid 0.5 mg IV. Will have blood cultures x2 and a serum lactic acid drawn and a portable chest x-ray. Will repeat Dilaudid 0.5 mg IV for headache relief. 02/09/20 12:07 Differential on the white count is 91% neutrophils and no bands cells appreciated. Influenza screen returned negative. Chest x-ray x1 view was normal. Chemistry reveals a sodium of 138 and potassium of 4.9 chloride 102 with a bicarb of 22. Anion gap is elevated at 18.9. BUN is 14 with a creatinine of 0.9 GFR is greater than 60. Glucose 103 with a calcium of 9.5. Liver function is normal C-reactive protein mildly elevated at 2.4 total protein 8.3 albumin fraction 4.4. 02/09/20 12:38 patient is feeling quite a bit better. Headache is down to a 3 out of 10. She still is febrile however. Will hang a second liter of D5 normal saline at open. Labs is just finished collecting her blood cultures for the second time. Not yet been able to void. 02/09/20 13:33 lactic acid has returned and is elevated at 2.3. It will be repeated in 3 hours time she does not feel like she could void and therefore a urine sample will be collected. Going to give her Rocephin 2 g IV at this time as I believe she has a urinary tract infection 02/09/20 14:57 Urinalysis is revealing 2+ glucosuria trace of ketones but no signs of infection. Reexamination she is tender in her left lower quadrant with no real peritoneal signs. Certainly negative findings in the right lower quadrant. The possibility of diverticulitis therefore exist. I will have CT of the abdomen performed with IV contrast only. Ports headache is back up to a 5 out of 10. Will repeat Dilaudid 0.5 mg IV. 02/09/20 15:41 CT of the abdomen and pelvis has been performed with IV contrast. Visualized portions of the lungs are clear. The liver appears homogeneous with no intraductal dilatation. Gallbladder is mildly distended and contains no calcified gallstones. Pancreas is normal. Stomach appears normal both kidneys appear to be within normal limits with no signs of hydronephrosis or obstruction of the ureters. Small amounts of diverticuli are appreciated throughout the sigmoid colon with no signs of diverticulitis. In the pelvis she has a mass coming off the superior surface of the uterus which appears to be a leiomyoma indenting the urinary bladder. She is mild cysts in both knees but no free fluid in the pelvis. There are no intra-abdominal signs for source of infection. 02/09/20 15:49 good her ear nose and throat exam and is negative as well. Her I have no reason for an elevated white count with a left shift. The last lactic acid level checked was 1.8. She is feeling better and therefore I am going to discharge her home on Levaquin 500 mg once daily for the next 10 days with the first tablet to be taken today. She is to be reviewed in 36 hours time if she is still running a fever. She could have influenza just that is very unusual to for her to present with an elevated white count and left shift. Be sent home with Zofran 4 mg sublingual every 4-6 hours necessary for nausea relief. Plenty of fluids such as Gatorade or Powerade. Percocet 5/325 mg 1 or 2 every 4-6 hours necessary for pain relief x12 tablets. Motrin 600 mg every 6 hours as needed for fever and/or headache or indoor body ache relief. Departure - Departure Time of Disposition: 15:50 Condition: Fair - Discharge Information *PRESCRIPTION DRUG MONITORING PROGRAM REVIEWED*: Not Applicable *COPY OF PRESCRIPTION DRUG MONITORING REPORT IN PATIENT MAURICIO: Not Applicable Sepsis Event Note - Evaluation Sepsis Screening Result: Possible Sepsis Risk - Focused Exam Date Exam was Performed: 02/14/20 Time Exam was Performed: 14:34
[2020-02-09] MEDS ORDERED: Acetaminophen 325 MG Tab PO ONE (10:11)
[2020-02-09] MEDS ORDERED: Metoclopramide 10 MG/2 ML SDV IVPUSH ONE (10:11)
[2020-02-09] MEDS ORDERED: Sodium Chloride 0.9% 10 ML Syringe FLUSH PRN ×2 (10:11→15:07)
[2020-02-09] MEDS ORDERED: HYDROmorphone 0.5 MG/0.5 ML Syringe IVPUSH ONE ×3 (10:15→15:03)
[2020-02-09] MEDS ORDERED: Dextrose 5%-0.9% NaCl 1,000 ML IV SCH ×2 (10:15→12:45)
[2020-02-09] MEDS ORDERED: Ketorolac 30 MG/ML SDV IVPUSH ONE (10:15)
[2020-02-09] MEDS ORDERED: diphenhydrAMINE 50 MG/ML SDV IVPUSH ONE (10:17)
--- NOTE | 2020-02-09 12:11 | CR ---
Chest: Portable view of the chest was obtained. Comparison: Prior chest x-ray is not available. Heart size and mediastinum are normal. Lungs are clear with no acute parenchymal change. Bony structures are unremarkable. Impression: 1. Nothing acute is appreciated on portable chest x-ray. Diagnostic code #1 This report was dictated in MDT
[2020-02-09] MEDS ORDERED: cefTRIAXone 2 GM in Sodium Chloride 0.9% 100 ML IV SCH (13:45)
[2020-02-09] MEDS ORDERED: Lactated Ringers 1,000 ML ONE (14:22)
[2020-02-09] MEDS ORDERED: Lactated Ringers 1,000 ML IV SCH (14:30)
[2020-02-09] MEDS ORDERED: Iopamidol 612 MG/ML 100 ML Bottle IVPUSH ONE (15:07)
--- NOTE | 2020-02-09 15:42 | CT ---
CT abdomen and pelvis Technique: Multiple axial sections were obtained from above the dome of the diaphragm inferiorly through the pubic symphysis. Intravenous contrast was utilized. No oral contrast has been given. Comparison: No prior abdominal imaging. Findings: Visualized lung bases show nothing acute. Liver contains no focal abnormality. Gallbladder contains no calcified gallstones. Spleen appears within normal limits. Adrenal glands show no nodule. Pancreas is within normal limits. Kidneys show symmetric contrast enhancement without hydronephrosis or mass. Aorta shows no aneurysm. No retroperitoneal adenopathy or mesenteric abnormalities are seen. No pelvic mass or adenopathy is seen. No free fluid or inflammatory change is seen. Delayed images shows contrast within the bladder. Appendix is seen and appears normal in size. No free fluid or inflammatory change is identified. Bone window settings were reviewed. No acute osseous finding is appreciated. Impression: 1. No abnormality is identified on CT study of the abdomen and pelvis. Diagnostic code #1 This report was dictated in MDT
== END 2020-02-09 16:25 | disposition home or self-care (01) ==
LOC: JD.ED 09:21
DX: G43.009 Migraine without aura, not intractable, without status migrainosus (principal); R50.9 Fever, unspecified; Z91.09 Other allergy status, other than to drugs and biological substances
CPT/HCPCS: 36415; 71045; 74177; 80053; 81001; 83605; 85007; 85027; 86140; 87040; 87804; 96361; 96365; 96375; 96376; 99284; A9270; J0696; J1170; J1200; J1885; J2765; J7042; J7050; J7120; Q9967

== ENCOUNTER 2020-02-14 15:26 | Emergency (ER) | payer BC ==
[2020-02-14] MEDS ORDERED: diphenhydrAMINE 50 MG/ML SDV IVPUSH ONE (15:50)
[2020-02-14] MEDS ORDERED: Metoclopramide 10 MG/2 ML SDV IVPUSH ONE (15:50)
[2020-02-14] MEDS ORDERED: Ketorolac 30 MG/ML SDV IVPUSH ONE (15:50)
[2020-02-14] MEDS ORDERED: Sodium Chloride 0.9% 10 ML Syringe FLUSH PRN (15:50)
[2020-02-14] MEDS ORDERED: Sodium Chloride 0.9% 1,000 ML IV SCH (16:00)
--- NOTE | 2020-02-14 16:01 | EDM.PDOC ---
ED HPI GENERAL MEDICAL PROBLEM - General Chief Complaint: Headache Stated Complaint: HEADACHE/COUGH Time Seen by Provider: 02/14/20 15:39 Source of Information: Reports: Patient, Old Records, RN Notes Reviewed History Limitations: Reports: No Limitations - History of Present Illness INITIAL COMMENTS - FREE TEXT/NARRATIVE: Patient is a 39-year-old female who presents to the ED for the evaluation of ongoing headache/fever/cough. The patient was evaluated by Dr. Sotelo in this ER last Wednesday, had a pretty extensive work up done at that time, she did have an elevated white blood cell count of 17,000, with 90% neutrophils no bands, which is suggestive of a bacterial infection but she there was no source identified at that visit. She was given a dose of Rocephin in the ER, and sent home with levofloxacin on outpatient basis. The patient states that she and her are trying to get , so she went to her fertility clinic on Wednesday, and was tested for coronavirus at that time, and that was negative due to her possibly needing fertility treatments. Patient was also found to be influenza negative on Wednesday. She did receive multiple bags of fluids, and medications that did seem to help her headache at that time. She presented back to the [facility] clinic today due to ongoing cough, and shortness of breath, and the provider at the walk-in clinic was concerned due to her fever, headache , and stiff neck about the possibility of meningitis in the need for a lumbar puncture. Patient did have some lab work done at the clinic today, and her white blood cell count is close to within normal limits at 9.9 today, the upper limit of normal is 9.4 at their lab. Patient states that she does have a history of migraines, and has been on Topamax for this, but she has recently stopped this due to their desire to have a child. She notes this was roughly 2 to 3 weeks ago that she stopped the medications. She does state that her headaches have worsened since the stop of Topamax. Patient states that her temperature at home has been 99.1 F to 99.8 F, she has been using the Percocet as prescribed, but states it provides a minimal amount to help, but does not take the headache away completely. Patient states that almost anything can worsen the headache, she has not found anything that is really made it better. As for the cough, it is a dry harsh intermittent cough. Of note her is still not feeling well either and is sick with some similar symptoms. Headache Pain Score (Numeric/FACES): 8 - Related Data Allergies Allergy/AdvReac Type Severity Reaction Status Date / Time cat dander Allergy Cannot Verified 02/14/20 15:35 Remember Home Meds: Home Meds Cyclobenzaprine [Flexeril] 10 mg PO TID PRN 01/04/20 [History] Dicyclomine [Bentyl] 10 mg PO QID 01/04/20 [History] Labetalol HCl [Labetalol] 100 mg PO BID 01/04/20 [History] Lactulose [Chronulac] 15 ml PO DAILY 01/04/20 [History] Ibuprofen 600 mg PO Q6H PRN #60 tablet 01/05/20 [Rx] oxyCODONE HCl/Acetaminophen [Percocet 5-325 mg Tablet] 1 - 2 each PO Q6H PRN # 20 tablet 01/05/20 [Rx] Ondansetron [Zofran] 4 mg BUCCAL Q6H PRN #6 tab 02/09/20 [Rx] levoFLOXacin [Levaquin] 500 mg PO DAILY #10 tab 02/09/20 [Rx] oxyCODONE HCl/Acetaminophen [Percocet 5-325 mg Tablet] 1 - 2 each PO Q4H PRN # 12 tablet 02/09/20 [Rx] Promethazine HCl/Codeine [Prometh-Codein 6.25-10 mg/5 ml] 5 ml PO Q4H PRN #120 ml 02/14/20 [Rx] Past Medical History HEENT History: Reports: Allergic Rhinitis Cardiovascular History: Reports: Hypertension Gastrointestinal History: Reports: Chronic Constipation, GERD Genitourinary History: Reports: Other (See Below) Other Genitourinary History: suprapubic pain, frequency DEPARTMENT ASSISTANT History: Reports: Other (See Below) Other DEPARTMENT ASSISTANT History: bacterial vaginitis, infertility, menorrhagia, pelvic pain , vaginal itching, hysteroscopy, laparoscopy with endometriosis implants Musculoskeletal History: Reports: Back Pain, Chronic Neurological History: Reports: Headaches, Chronic, Migraines Dermatologic History: Reports: Other (See Below) Other Dermatologic History: acne Social & Family History - Tobacco Use Smoking Status *Q: Never Smoker - Caffeine Use Caffeine Use: Reports: Coffee, Soda - Recreational Drug Use Recreational Drug Use: No - Living Situation & Occupation Living situation: Reports: Occupation: Unemployed ED ROS GENERAL - Review of Systems Review Of Systems: See Below Constitutional: Reports: Fever Respiratory: Reports: Shortness of Breath, Cough GI/Abdominal: Denies: Constipation, Diarrhea, Nausea, Vomiting Musculoskeletal: Reports: Neck Pain (neck seems stiff) Neurological: Reports: Headache (typical for her migraines) - Physical Exam Exam: See Below Exam Limited By: No Limitations General Appearance: Alert, WD/WN, No Apparent Distress Eye Exam: Bilateral Eye: EOMI, Normal Inspection, PERRL Ears: Normal External Exam Nose: Normal Inspection Throat/Mouth: Normal Inspection, Normal Lips, Normal Teeth, Normal Gums, Normal Oropharynx, Normal Voice, No Airway Compromise Head Exam: Atraumatic, Normocephalic Neck: Normal Inspection, Supple, Non-Tender, Full Range of Motion Respiratory/Chest: No Respiratory Distress, Lungs Clear, Normal Breath Sounds, No Accessory Muscle Use, Chest Non-Tender Cardiovascular: Normal Peripheral Pulses, Regular Rate, Rhythm, No Murmur GI/Abdominal: Normal Bowel Sounds, Soft, Non-Tender, No Distention, No Mass Neuro Exam (Abbreviated): Alert, Oriented, CN II-XII Intact (grossly), Normal Cognition, No Motor/Sensory Deficits Back Exam: Normal Inspection Extremities: Normal Inspection, Normal Range of Motion, Normal Capillary Refill Psychiatric: Normal Affect, Normal Mood Skin Exam: Warm, Dry, Intact, Normal Color, No Rash Course - Vital Signs Last Recorded V/S: Last Vital Signs Temp 99 F 02/14/20 15:33 Pulse 88 02/14/20 15:33 Resp 18 02/14/20 15:33 BP 141/100 H 02/14/20 15:33 Pulse Ox 100 02/14/20 15:33 - Orders/Labs/Meds Orders: Active Orders 24 hr Category Date Time Status Peripheral IV Care [RC] . DIRECTED Care 02/14/20 15:50 Ordered Sodium Chloride 0.9% [Normal Saline] 1,000 ml Med 02/14/20 16:00 Active IV ASDIRECTED Sodium Chloride 0.9% [Saline Flush] Med 02/14/20 15:50 Active 10 ml FLUSH ASDIRECTED PRN Peripheral IV Insertion Adult [OM.PC] Routine Oth 02/14/20 15:50 Ordered Medication Orders Sodium Chloride (Normal Saline) 1,000 mls @ 999 mls/hr IV ASDIRECTED ROSARIO Last Admin: 02/14/20 16:35 Dose: 999 mls/hr Sodium Chloride (Saline Flush) 10 ml FLUSH ASDIRECTED PRN PRN Reason: Keep Vein Open Last Admin: 02/14/20 16:34 Dose: 10 ml Meds: Medications Generic Name Dose Route Start Last Admin Trade Name Freq PRN Reason Stop Dose Admin Sodium Chloride 1,000 mls @ 999 mls/hr 02/14/20 16:00 02/14/20 16:35 Normal Saline IV 999 mls/hr ASDIRECTED ROSAROI Administration Sodium Chloride 10 ml 02/14/20 15:50 02/14/20 16:34 Saline Flush FLUSH 10 ml ASDIRECTED PRN Administration Keep Vein Open Discontinued Medications Generic Name Dose Route Start Last Admin Trade Name Freq PRN Reason Stop Dose Admin Diphenhydramine HCl 25 mg 02/14/20 15:50 02/14/20 16:35 Benadryl IVPUSH 02/14/20 15:51 25 mg ONETIME ONE Administration Hydromorphone HCl 0.5 mg 02/14/20 18:15 02/14/20 18:24 Dilaudid IVPUSH 02/14/20 18:16 0.5 mg ONETIME ONE Administration Ketorolac Tromethamine 30 mg 02/14/20 15:50 02/14/20 16:36 Toradol IVPUSH 02/14/20 15:51 30 mg ONETIME ONE Administration Metoclopramide HCl 10 mg 02/14/20 15:50 02/14/20 16:36 Reglan IVPUSH 02/14/20 15:51 10 mg ONETIME ONE Administration - Re-Assessments/Exams Free Text/Narrative Re-Assessment/Exam: 02/14/20 16:05 Patient presents to the ED for the evaluation of her ongoing illness. At this time will treat her headache with IV fluids, 30 mg Toradol, 10 mg Reglan, 25 mg Benadryl as the patient has been having ongoing cough, I will repeat a chest x- ray for further evaluation. Patient to need a lumbar puncture is quite low at this time. Patient does have somewhat of a stiff neck, but this is more likely attributed to her ongoing cough. Review of the patient's last visit, demonstrates an elevated white count, but 2 blood cultures that were negative. Patient is on IVF, and this could be a source of her headache due to the increased hormones. I will have Dr. Sotelo evaluate her as well to see if there is a need for an LP today. 02/14/20 18:16 Patient was reassessed at bedside, and states that her headache is still pretty severe, I will order 0.5mg of Dilaudid for further pain management as she was given this last Wednesday and seemed to help her pain quite a bit. 02/14/20 19:12 Patient was reassessed, and states that her headache has gotten better after the 0.5 mg Dilaudid. I will discharge her home at this time, and we will give her some cough medication to help prevent cough and hopefully make her headaches a little bit better. Departure - Departure Time of Disposition: 19:12 Disposition: Home, Self-Care 01 Condition: Fair Clinical Impression: Migraine - Discharge Information *PRESCRIPTION DRUG MONITORING PROGRAM REVIEWED*: Yes *COPY OF PRESCRIPTION DRUG MONITORING REPORT IN PATIENT MAURICIO: No Prescriptions: Promethazine HCl/Codeine [Prometh-Codein 6.25-10 mg/5 ml] 5 ml PO Q4H PRN #120 ml PRN Reason: Cough Instructions: Recurrent Migraine Headache, [id number] Referrals: Esther Barnes MD [Primary Care Provider] - Forms: ED Department Discharge Additional Instructions: You were evaluated in the ED for your headache. You were given a combination of medications and IV fluid for management. This did seem to provide you pretty good relief of your symptoms. Recommend that you go home and rest in a quiet, darkened room. Try also to keep well hydrated. Please continue to take all prior medications as previously directed, you were given a prescription for cough medication please take 5 mL's p.o. every 4 hours as needed for cough. Please return to the ED if your symptoms should change or worsen. Sepsis Event Note - Evaluation Sepsis Screening Result: No Definite Risk - Focused Exam Vital Signs: Vital Signs Temp Pulse Resp BP Pulse Ox 02/14/20 15:33 99 F 88 18 141/100 H 100 Date Exam was Performed: 02/14/20 Time Exam was Performed: 19:12 - My Orders Last 24 Hours: My Active Orders 02/14/20 15:50 Peripheral IV Care [RC] . DIRECTED Sodium Chloride 0.9% [Saline Flush] 10 ml FLUSH ASDIRECTED PRN Peripheral IV Insertion Adult [OM.PC] Routine 02/14/20 16:00 Sodium Chloride 0.9% [Normal Saline] 1,000 ml IV ASDIRECTED - Assessment/Plan Last 24 Hours: My Active Orders 02/14/20 15:50 Peripheral IV Care [RC] . DIRECTED Sodium Chloride 0.9% [Saline Flush] 10 ml FLUSH ASDIRECTED PRN Peripheral IV Insertion Adult [OM.PC] Routine 02/14/20 16:00 Sodium Chloride 0.9% [Normal Saline] 1,000 ml IV ASDIRECTED
--- NOTE | 2020-02-14 16:26 | CR ---
Chest: PA and lateral views of the chest were obtained. Comparison: Prior chest x-ray of 02/09/20. Heart size and mediastinum are normal. Lungs are clear with no acute parenchymal change. Bony structures appear within normal limits. Impression: 1. Nothing acute is appreciated on 2 view chest x-ray. Diagnostic code #1 Study was dictated in MDT
[2020-02-14] MEDS ORDERED: HYDROmorphone 0.5 MG/0.5 ML Syringe IVPUSH ONE (18:15)
== END 2020-02-14 19:26 | disposition home or self-care (01) ==
LOC: JD.ED 15:26
DX: G43.909 Migraine, unspecified, not intractable, without status migrainosus (principal); Z91.09 Other allergy status, other than to drugs and biological substances; Z79.899 Other long term (current) drug therapy
CPT/HCPCS: 71046; 96361; 96374; 96375; 99284; J1170; J1200; J1885; J2765; J7030